=== PATIENT | male | born 1960 | race Caucasian/White ===

== ENCOUNTER 2018-03-15 19:02 | Emergency (ER) | payer OTHER ==
[~2018-03-15] VITALS: Ht 193 cm; Wt 99.8 kg
[~2018-03-15 19:02] MED LIST changes: -NAPR-915 PO
--- OUTSIDE RECORDS SUMMARY | 2018-03-15 19:06 | XMS REPORT | Continuity of Care Document ---
Author Author [facility] Address Unknown Phone Unavailable Allergies Active Description Code Type Severity Reaction Onset Reported/Identified Relationship to Patient Clinical Status Yes lisinopril Drug Allergy 05/18/2012 Yes lisinopril 5 mg tablet Drug Allergy N/A N/A 05/31/2012 Yes lisinopril 5 mg tablet Drug Allergy 05/31/2012 Yes Cozaar Drug Allergy N/A N/A 05/08/2013 Yes hydrochlorothiazide Drug Allergy N/A N/A 05/08/2013 Yes Norvasc Drug Allergy N/A N/A 05/08/2013 Medications There is no data. Problems Date Dx Coded Attending Type Code Diagnosis Diagnosed By 04/17/2012 JACK JUAN DO 327.23 OBSTRUCTIVE SLEEP APNEA (ADULT) (PEDIATRIC) 04/17/2012 JACK JUAN DO 401.1 HYPERTENSION, BENIGN ESSENTIAL 04/17/2012 JACK JUAN DO V70.0 ROUTINE GENERAL MEDICAL EXAMINATION AT A HEALTH CARE FACILITY 04/17/2012 327.23 OBSTRUCTIVE SLEEP APNEA (ADULT) (PEDIATRIC) 04/17/2012 401.1 HYPERTENSION, BENIGN ESSENTIAL 04/17/2012 V70.0 ROUTINE GENERAL MEDICAL EXAMINATION AT A HEALTH CARE FACILITY 04/17/2012 327.23 OBSTRUCTIVE SLEEP APNEA (ADULT) (PEDIATRIC) 04/17/2012 401.1 HYPERTENSION, BENIGN ESSENTIAL 04/17/2012 V70.0 ROUTINE GENERAL MEDICAL EXAMINATION AT A HEALTH CARE FACILITY 04/17/2012 327.23 OBSTRUCTIVE SLEEP APNEA (ADULT) (PEDIATRIC) 04/17/2012 401.1 HYPERTENSION, BENIGN ESSENTIAL 04/17/2012 V70.0 ROUTINE GENERAL MEDICAL EXAMINATION AT A HEALTH CARE FACILITY 04/17/2012 JACK JUAN DO 327.23 OBSTRUCTIVE SLEEP APNEA (ADULT) (PEDIATRIC) 04/17/2012 JACK JUAN DO 401.1 HYPERTENSION, BENIGN ESSENTIAL 04/17/2012 JACK JUAN DO V70.0 ROUTINE GENERAL MEDICAL EXAMINATION AT A HEALTH CARE FACILITY 04/17/2012 SAMI JUAN DOA K 327.23 OBSTRUCTIVE SLEEP APNEA (ADULT) (PEDIATRIC) 04/17/2012 JUAN DO, JACK K 401.1 HYPERTENSION, BENIGN ESSENTIAL 04/17/2012 JUAN DO, JACK K V70.0 ROUTINE GENERAL MEDICAL EXAMINATION AT A HEALTH CARE FACILITY 04/17/2012 JUAN DO JACK K 327.23 OBSTRUCTIVE SLEEP APNEA (ADULT) (PEDIATRIC) 04/17/2012 JUAN DO JACK K 401.1 HYPERTENSION, BENIGN ESSENTIAL 04/17/2012 JUAN DO, JACK K V70.0 ROUTINE GENERAL MEDICAL EXAMINATION AT A HEALTH CARE FACILITY 04/17/2012 JUAN DO, JACK K 327.23 OBSTRUCTIVE SLEEP APNEA (ADULT) (PEDIATRIC) 04/17/2012 JUAN DO, JACK K 401.1 HYPERTENSION, BENIGN ESSENTIAL 04/17/2012 JUAN DO, JACK K V70.0 ROUTINE GENERAL MEDICAL EXAMINATION AT A HEALTH CARE FACILITY 05/18/2012 JUAN DO JACK K 250.00 DIABETES MELLITUS TYPE 2 05/18/2012 JUAN DO JACK K 701.9 UNSPECIFIED HYPERTROPHIC AND ATROPHIC CONDITIONS OF SKIN 05/18/2012 250.00 DIABETES MELLITUS TYPE 2 05/18/2012 701.9 UNSPECIFIED HYPERTROPHIC AND ATROPHIC CONDITIONS OF SKIN 05/18/2012 250.00 DIABETES MELLITUS TYPE 2 05/18/2012 701.9 UNSPECIFIED HYPERTROPHIC AND ATROPHIC CONDITIONS OF SKIN 05/18/2012 250.00 DIABETES MELLITUS TYPE 2 05/18/2012 701.9 UNSPECIFIED HYPERTROPHIC AND ATROPHIC CONDITIONS OF SKIN 05/18/2012 JUAN DO, JACK K 250.00 DIABETES MELLITUS TYPE 2 05/18/2012 JUAN DO, JACK K 701.9 UNSPECIFIED HYPERTROPHIC AND ATROPHIC CONDITIONS OF SKIN 05/18/2012 JUAN DO, JACK K 250.00 DIABETES MELLITUS TYPE 2 05/18/2012 JUAN DO, JACK K 701.9 UNSPECIFIED HYPERTROPHIC AND ATROPHIC CONDITIONS OF SKIN 05/18/2012 JUAN DO, JACK K 250.00 DIABETES MELLITUS TYPE 2 05/18/2012 JUAN DO, JACK K 701.9 UNSPECIFIED HYPERTROPHIC AND ATROPHIC CONDITIONS OF SKIN 05/18/2012 JUAN DO, JACK K 250.00 DIABETES MELLITUS TYPE 2 05/18/2012 JUAN DO, JACK K 701.9 UNSPECIFIED HYPERTROPHIC AND ATROPHIC CONDITIONS OF SKIN 06/20/2012 JUAN DO JACK K 728.71 PLANTAR FASCIAL FIBROMATOSIS 06/20/2012 728.71 PLANTAR FASCIAL FIBROMATOSIS 06/20/2012 728.71 PLANTAR FASCIAL FIBROMATOSIS 06/20/2012 728.71 PLANTAR FASCIAL FIBROMATOSIS 06/20/2012 JACK JUAN DO 728.71 PLANTAR FASCIAL FIBROMATOSIS 06/20/2012 JACK JUAN DO 728.71 PLANTAR FASCIAL FIBROMATOSIS 06/20/2012 JACK JUAN DO 728.71 PLANTAR FASCIAL FIBROMATOSIS 06/20/2012 JACK JUAN DO 728.71 PLANTAR FASCIAL FIBROMATOSIS 08/11/2012 JACK JUAN DO 302.72 PSYCHOSEXUAL DYSFUNCTION WITH INHIBITED SEXUAL EXCITEMENT 08/11/2012 302.72 PSYCHOSEXUAL DYSFUNCTION WITH INHIBITED SEXUAL EXCITEMENT 08/11/2012 302.72 PSYCHOSEXUAL DYSFUNCTION WITH INHIBITED SEXUAL EXCITEMENT 08/11/2012 302.72 PSYCHOSEXUAL DYSFUNCTION WITH INHIBITED SEXUAL EXCITEMENT 08/11/2012 JACK JUAN DO 302.72 PSYCHOSEXUAL DYSFUNCTION WITH INHIBITED SEXUAL EXCITEMENT 08/11/2012 JACK JUAN DO 302.72 PSYCHOSEXUAL DYSFUNCTION WITH INHIBITED SEXUAL EXCITEMENT 08/11/2012 JACK JUAN DO 302.72 PSYCHOSEXUAL DYSFUNCTION WITH INHIBITED SEXUAL EXCITEMENT 01/16/2013 682.9 CELLULITIS AND ABSCESS OF UNSPECIFIED SITES 01/16/2013 682.9 CELLULITIS AND ABSCESS OF UNSPECIFIED SITES 01/16/2013 682.9 CELLULITIS AND ABSCESS OF UNSPECIFIED SITES 01/16/2013 JACK JUAN DO 682.9 CELLULITIS AND ABSCESS OF UNSPECIFIED SITES 01/16/2013 JACK JUAN DO 682.9 CELLULITIS AND ABSCESS OF UNSPECIFIED SITES 01/16/2013 JACK JUAN DO 682.9 CELLULITIS AND ABSCESS OF UNSPECIFIED SITES 01/22/2013 V81.1 HYPERTENSION SCREENING 01/22/2013 JACK JUAN DO V81.1 HYPERTENSION SCREENING 01/22/2013 JACK JUAN DO V81.1 HYPERTENSION SCREENING 01/22/2013 JACK JUAN DO V81.1 HYPERTENSION SCREENING 01/25/2013 729.82 CRAMP OF LIMB 01/25/2013 JACK JUAN DO 729.82 CRAMP OF LIMB 01/25/2013 JACK JUAN DO 729.82 CRAMP OF LIMB 01/25/2013 JACK JUAN DO 729.82 CRAMP OF LIMB 05/08/2013 JACK JUAN DO [place] 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 05/08/2013 JACK JUAN DO [place] V15.81 PERSONAL HISTORY OF NONCOMPLIANCE WITH MEDICAL TREATMENT PRESENTING HAZARDS TO HEALTH 05/08/2013 JACK JUAN DO [place] 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 Encounters ACCT No. Visit Date/Time Discharge Status Pt. Type Provider Facility Loc./Unit Complaint [id number] 08/23/2013 13:20:00 08/23/2013 23:59:59 CLS Outpatient DRAKE MCKEON JACK K [id number] 05/25/2013 13:22:00 05/25/2013 23:59:59 CLS Outpatient DRAKE MCKEON JACK [place] [id number] 05/08/2013 10:11:00 05/08/2013 23:59:59 CLS Outpatient DRAKE MCKEON JACK K [id number] 08/11/2012 11:18:00 08/11/2012 23:59:59 CLS Outpatient [place] K [id number] 05/18/2012 11:34:00 05/18/2012 23:59:59 CLS Outpatient JUAN DO JACK K [id number] 01/25/2013 08:57:00 Document Registration [id number] 01/18/2013 08:20:00 Document Registration [id number] 01/16/2013 18:03:00 Document Registration [id number] 03/21/2014 10:12:00 03/21/2014 11:29:00 DIS Emergency
--- OUTSIDE RECORDS SUMMARY | 2018-03-15 19:06 | XMS REPORT ---
Author RICCO Reyes [employer] Address Unknown Phone Unavailable Care Team Providers Care Youth Care Professional Name Role Phone RICCO LORENZO CP Unavailable Allergies, Adverse Reactions, Alerts Substance Reaction Event Type Norvasc Pedal Edema Drug Allergy Hydrochlorothiazide Leg cramps (doesn't want to be on K as well) Drug Allergy Cozaar ED Drug Allergy Lisinopril 5 Mg Tablet Cough Non Drug Allergy Problems Problem Type Condition Code Onset Dates Condition Status Problem Unspecified hypertrophic and atrophic condition of skin 701.9 Active Problem Cellulitis and abscess of unspecified site 682.9 Active Problem Diabetes mellitus without mention of complication, type II or unspecified type, not stated as uncontrolled 250.00 Active Problem 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 Active Problem Personal history of noncompliance with medical treatment, presenting hazards to health V15.81 Active Problem Encounter for dental examination Z01.20 Active Problem Routine general medical examination at health care facility V70.0 Active Problem Essential hypertension, benign 401.1 Active Problem Psychosexual dysfunction with inhibited sexual excitement 302.72 Active Problem Obstructive sleep apnea (adult) (pediatric) 327.23 Active Problem Cramp of limb 729.82 Active Problem Screening for hypertension V81.1 Active Problem Need for prophylactic vaccination and inoculation, Influenza V04.81 Active Assessment Encounter for dental examination Z01.20 Active Problem Plantar fascial fibromatosis 728.71 Active Medications No Known Medications Procedures Procedure Coding System Code Date Billing Notes on claim CPT-4 EC109 Jun 19, 2015 Vital Signs Date/Time: Jun 19, 2015 Blood Pressure Diastolic 98 mmHg Blood Pressure Systolic 150 mmHg Cardiac Monitoring Heart Rate 101 bpm Results No Known Results Summary Purpose eClinicalWorks Submission
--- NOTE | 2018-03-15 19:36 | ED Abdominal Pain ---
General Stated Complaint: HERNIA Source of Information: Patient Exam Limitations: No Limitations History of Present Illness Date Seen by Provider: Mar 15, 2018 Time Seen by Provider: 19:12 Initial Comments PT ARRIVES VIA POV FROM HOME STATES HE HURT HIMSELF AT WORK TODAY AND THINKS HE HAS A HERNIA STATES HE WORKS AT [employer], AND AROUND 0730 THIS AM, HE WAS PUSHING A BIG BOTTLE OF HELIUM ( STATES IT IS APPROXIMATELY 5" TALL AND WEIGHS SEVERAL HUNDRED LBS. ), AND HE SLIPPED AND FELL ONTO / AGAINST THE BOTTLE C/O PAIN AND SWELLING TO RIGHT PUBIC AREA--NOTICED SOME TIME AFTER HE SLIPPED AND FELL. SWELLING NOTED WHEN HE RAISES HIS ARMS OVER HIS HEAD, STATES THE AREA WAS BULGING OUT SIGNIFICANTLY THIS MORNING AFTER IT HAPPENED. IS NOT BULGING OUT NOW. NO PAIN NOW WAS SEEN AT [facility] TODAY AND HAD OUTPATIENT ULTRASOUND, WHICH WAS NORMAL AND DID NOT SHOW ANY EVIDENCE OF A HERNIA. NO NAUSEA/VOMITING/DIARRHEA/CONSTIPATION DOES HAVE SOME URINARY URGENCY, BUT NO PAIN ON URINATION AND NO HEMATURIA/ CHANGE IN COLOR OF URINE. NO FEVER HAS NOT TAKEN ANYTHING FOR PAIN NO HISTORY OF SIMILAR PCP: DR. HOOD SURGEON: DR. WOLFF Allergies and Home Medications Allergies Coded Allergies: liraglutide (Verified Allergy, Mild, RASH, 03/15/18) Home Medications Naproxen 500 Mg Tablet, 500 MG PO BID Prescribed by: NIKOLE MARQUEZ on 03/15/182111 Patient Home Medication List Home Medication List Reviewed: Yes Review of Systems Constitutional: weight loss (BARIATRIC SURGERY IN 2017--HAS LOST 90 LBS) Respiratory: No Symptoms Reported Cardiovascular: No Symptoms Reported Gastrointestinal: See HPI, Abdominal Pain; Denies Constipated, Denies Diarrhea , Denies Nausea, Denies Poor Fluid Intake, Denies Vomiting Genitourinary: See HPI; Denies Burning, Denies Discharge, Denies Frequency, Denies Flank Pain, Denies Hematuria, Denies Pain; Urgency Musculoskeletal: see HPI; No back pain, No neck pain Skin: no symptoms reported Psychiatric/Neurological: No Symptoms Reported Endocrine: No Symptoms Reported Hematologic/Lymphatic: No Symptoms Reported Past Kqcflnr-Szzizk-Cctdoe Hx Patient Social History Alcohol Use: Denies Use Recreational Drug Use: No Smoking Status: Never a Smoker Past Medical History Surgeries: Yes (GASTRIC SLEEVE 2017 BY NORA PANTOJA) Abdominal, Appendectomy, Gallbladder Respiratory: No Cardiac: No Neurological: No Reproductive Disorders: No Genitourinary: No Gastrointestinal: Yes Gastroesophageal Reflux Musculoskeletal: No Endocrine: Yes (OBESITY--S/P GASTRIC SLEEVESURGERY) Diabetes, Non-Insulin dep Cancer: No Psychosocial: No Integumentary: No Blood Disorders: No Physical Exam Vital Signs Vital Signs - First Documented 03/15/18 19:09 Temp 97.8 Pulse 82 Resp 16 B/P (MAP) 175/117 (136) Pulse Ox 100 Capillary Refill : Height/Weight/BMI Height: 6'4" Weight: 266lbs. oz. 120.737310gt; BMI Method: General Appearance: no apparent distress, other (WALKS UPRIGHT AND MOVES WITHOUT DIFFICULTY. CALM. DOES NOT APPEAR TO BE IN ANY DISCOMFORT) Respiratory: normal breath sounds, no respiratory distress, no accessory muscle use Cardiovascular: normal peripheral pulses, regular rate, rhythm, no edema, no murmur Gastrointestinal: normal bowel sounds, non tender, soft, no organomegaly, no pulsatile mass, hernia (RIGHT INGUINAL AREA) Extremities: normal inspection, normal capillary refill Back: normal inspection, no CVA tenderness Neurologic/Psychiatric: palliative care coordinator II-XII nml as tested, no motor/sensory deficits, alert, normal mood/affect, oriented x 3 Skin: normal color, warm/dry, tattoos/piercings (TATTOO RIGHT LOWER ABDOMEN), other (NO EXTERNAL EVIDENCE OF TRAUMA NOTED ANYWHERE) Progress/Results/Core Measures Results/Orders Lab Results Laboratory Tests Test 03/15/18 19:27 Range/Units White Blood Count 6.2 4.3-11.0 10^3/uL Red Blood Count 5.32 4.35-5.85 10^6/uL Hemoglobin 15.8 13.3-17.7 G/DL Hematocrit 45 40-54 % Mean Corpuscular Volume 85 80-99 FL Mean Corpuscular Hemoglobin 30 25-34 PG Mean Corpuscular Hemoglobin Concent 35 32-36 G/DL Red Cell Distribution Width 12.6 10.0-14.5 % Platelet Count 230 130-400 10^3/uL Mean Platelet Volume 9.5 7.4-10.4 FL Neutrophils (%) (Auto) 58 42-75 % Lymphocytes (%) (Auto) 32 12-44 % Monocytes (%) (Auto) 8 0-12 % Eosinophils (%) (Auto) 2 0-10 % Basophils (%) (Auto) 1 0-10 % Neutrophils # (Auto) 3.6 1.8-7.8 X 10^3 Lymphocytes # (Auto) 2.0 1.0-4.0 X 10^3 Monocytes # (Auto) 0.5 0.0-1.0 X 10^3 Eosinophils # (Auto) 0.1 0.0-0.3 10^3/uL Basophils # (Auto) 0.0 0.0-0.1 10^3/uL Urine Color YELLOW Urine Clarity CLEAR Urine pH 5 5-9 Urine Specific Falls 1.025 H 1.016-1.022 Urine Protein NEGATIVE NEGATIVE Urine Glucose (UA) NEGATIVE NEGATIVE Urine Ketones NEGATIVE NEGATIVE Urine Nitrite NEGATIVE NEGATIVE Urine Bilirubin NEGATIVE NEGATIVE Urine Urobilinogen 1 NORMAL MG/DL Urine Leukocyte Esterase 1+ H NEGATIVE Urine RBC (Auto) NEGATIVE NEGATIVE Urine RBC NONE /HPF Urine WBC 0-2 /HPF Urine Squamous Epithelial Cells 0-2 /HPF Urine Crystals PRESENT H /LPF Urine Calcium Oxalate Crystals MODERATE H /LPF Urine Bacteria NONE /HPF Urine Casts NONE /LPF Urine Mucus SMALL H /LPF Urine Culture Indicated NO Sodium Level 143 135-145 MMOL/L Potassium Level 3.6 3.6-5.0 MMOL/L Chloride Level 108 H 98-107 MMOL/L Carbon Dioxide Level 26 21-32 MMOL/L Anion Gap 9 5-14 MMOL/L Blood Urea Nitrogen 16 7-18 MG/DL Creatinine 0.81 0.60-1.30 MG/DL Estimat Glomerular Filtration Rate > 60 BUN/Creatinine Ratio 20 Glucose Level 122 H 70-105 MG/DL Calcium Level 9.5 8.5-10.1 MG/DL Corrected Calcium 8.5-10.1 MG/DL Total Bilirubin 1.2 H 0.1-1.0 MG/DL Aspartate Amino Transf (AST/SGOT) 22 5-34 U/L Alanine Aminotransferase (ALT/SGPT) 24 0-55 U/L Alkaline Phosphatase 89 40-136 U/L Total Protein 8.1 6.4-8.2 GM/DL Albumin 4.6 H 3.2-4.5 GM/DL Amylase Level 57 25-125 U/L Lipase 43 8-78 U/L My Orders Orders - NIKOLE MARQUEZ DO Saline Lock/Iv-Start (03/15/18 19:11) Amylase (03/15/18 19:11) Cbc With Automated Diff (03/15/18 19:11) Comprehensive Metabolic Panel (03/15/18 19:11) Lipase (03/15/18 19:11) Ua Culture If Indicated (03/15/18 19:11) Acute Abd Series (03/15/18 19:11) Ct Abd/Pelvis Wo(Kidney Stone) (03/15/18 20:11) Vital Signs/I&O 03/15/18 03/15/18 19:09 21:23 Temp 97.8 Pulse 82 73 Resp 16 16 B/P (MAP) 175/117 (136) 150/112 Pulse Ox 100 98 Progress Progress Note : Progress Note NO PAIN DURING ER STAY Diagnostic Imaging Comments CT ABDOMEN/PELVIS--FAT CONTAINING HERNIA IN RIGHT GROIN, WITHOUT EVIDENCE OF INCARCERATION OR OBSTRUCTION, OTHER AN NO ACUTE PROCESS--PER RADIOLOGIST REPORT @ 2100 Reviewed: Reviewed by Me Departure Impression Primary Impression: RIGHT LOWER ABDOMEN/PUBIC AREA CONTUSION Additional Impression: Right inguinal hernia Disposition: HOME, SELF-CARE Condition: Stable Departure-Patient Inst. Referrals: SHIRIN BRICENO MD, LISA A MD (PCP/Family) Primary Care Physician Patient Instructions: Abdominal Hernia (DC), Contusion (DC), Groin Hernia (DC) Add. Discharge Instructions: NO LIFTING OVER 5 LBS UNTIL YOU ARE SEEN AND RELEASED BY FOLLOW UP WITH DR. BRICENO OR SURGEON OF CHOICE NEXT WEEK FOR FURTHER CARE RETURN TO ER IF WORSE Scripts Naproxen (Naproxen) 500 Mg Tablet 500 MG PO BID, #20 TAB Prov: NIKOLE MARQUEZ DO 03/15/18 NIKOLE MARQUEZ DO Mar 15, 2018 19:36
[2018-03-15 19:37] LABS: BASOPHILS % (AUTO) 1 % (0-10); EOSINOPHILS # (AUTO) 0.1 10^3/uL (0.0-0.3); EOSINOPHILS % (AUTO) 2 % (0-10); HEMATOCRIT 45 % (40-54); HEMOGLOBIN 15.8 G/DL (13.3-17.7); LYMPHOCYTES % (AUTO) 32 % (12-44); MEAN CORPUSCULAR HEMOGLOBIN 30 PG (25-34); MEAN CORPUSCULAR HGB CONC 35 G/DL (32-36); MEAN CORPUSCULAR VOLUME 85 FL (80-99); MEAN PLATELET VOLUME 9.5 FL (7.4-10.4); MONOCYTES # (AUTO) 0.5 X 10^3 (0.0-1.0); MONOCYTES % (AUTO) 8 % (0-12); NEUTROPHILS # (AUTO) 3.6 X 10^3 (1.8-7.8); NEUTROPHILS % (AUTO) 58 % (42-75); PLATELET COUNT 230 10^3/uL (130-400); RED BLOOD COUNT 5.32 10^6/uL (4.35-5.85); RED CELL DISTRIBUTION WIDTH 12.6 % (10.0-14.5); WHITE BLOOD COUNT 6.2 10^3/uL (4.3-11.0)
[2018-03-15 19:38] LABS: BILIRUBIN,URINE NEGATIVE (NEGATIVE); CLARITY,URINE CLEAR; COLOR,URINE YELLOW; GLUCOSE, URINE (UA) NEGATIVE (NEGATIVE); KETONES,URINE NEGATIVE (NEGATIVE); LEUKOCYTE ESTERASE ,URINE 1+ (NEGATIVE); NITRITE,URINE NEGATIVE (NEGATIVE); PH,URINE 5 (5-9); PROTEIN,URINE NEGATIVE (NEGATIVE); UROBILINOGEN,URINE 1 MG/DL (NORMAL)
[2018-03-15 19:46] LABS: CALCIUM OXALATE CRYSTALS,UR MODERATE /LPF; SQUAMOUS EPITHELIAL CELL,UR 0-2 /HPF; WBC,URINE 0-2 /HPF
[2018-03-15 20:01] LABS: ALANINE AMINOTRANSFERASE 24 U/L (0-55); ALBUMIN 4.6 GM/DL (3.2-4.5); ALKALINE PHOSPHATASE 89 U/L (40-136); AMYLASE 57 U/L (25-125); BILIRUBIN,TOTAL 1.2 MG/DL (0.1-1.0); BUN/CREATININE RATIO 20; CALCIUM 9.5 MG/DL (8.5-10.1); CARBON DIOXIDE 26 MMOL/L (21-32); CHLORIDE 108 MMOL/L (98-107); CREATININE SERUM 0.81 MG/DL (0.60-1.30); GFR ESTIMATED > 60; GLUCOSE 122 MG/DL (70-105); LIPASE 43 U/L (8-78); POTASSIUM 3.6 MMOL/L (3.6-5.0); SODIUM 143 MMOL/L (135-145); TOTAL PROTEIN 8.1 GM/DL (6.4-8.2)
--- NOTE | 2018-03-15 20:57 | Diagnostic Imaging Report ---
PROCEDURE: CT urinary tract, rule out kidney stone. TECHNIQUE: Multiple contiguous axial images were obtained through the abdomen and pelvis without the use of intravenous contrast. INDICATION: Right groin pain There are no prior studies available for comparison. Reportedly, there is clinical concern regarding a mass in the right groin. On this exam, however, there is no discrete mass identified. There is a fat containing inguinal hernia on the right but there is no incarceration or obstruction of bowel by the hernia. There is no pelvic mass or free fluid collection identified. The appendix was not well-visualized but there are no indirect signs of acute appendicitis. The prostate gland is mildly enlarged. The urinary bladder is grossly unremarkable. The kidneys are unremarkable for nephrolithiasis or for a renal mass. The kidneys do not appear to be obstructed. There is a well-circumscribed 2.4 CM area of low density along the posterior aspect of the left kidney. I suspect that this is a cyst. Ultrasound would be recommended to confirm this, however. The liver, spleen, pancreas, adrenals, aorta, and inferior vena cava show no sign of an acute abnormality. The gallbladder is surgically absent. There are also surgical sutures about the stomach. The lung bases are clear. The bone windows show no evidence for a fracture or for a destructive lesion. There is fairly severe degenerative disc and bony disease at L3-4, L4-5, and L5-S1. IMPRESSION: 1. There is a fat-containing inguinal hernia on the right but there is no evidence for obstruction or incarceration of bowel by the hernia. There is no mass in the right groin identified either. 2. There is no acute abnormality of the abdomen or pelvis. 3. The rounded area of low density along the posterior aspect of the left kidney is most likely a cyst. Ultrasound would be recommended to confirm this. 4. There are postsurgical changes consistent with a prior cholecystectomy and gastric surgery. Dictated by: Dictated on workstation # [id number]
--- NOTE | 2018-03-15 21:01 | Diagnostic Imaging Report ---
EXAMINATION: Acute abdomen series at 08:34 p.m. INDICATION: Abdominal pain. FINDINGS: The accompanying erect PA chest shows the heart size to be within normal limits and stable when compared to 03/21/2014. The lungs are clear. There is no sign of pneumoperitoneum. Supine and erect views of the abdomen were obtained. There is gas in both the large and small bowel in a nonspecific fashion. There is no evidence for a bowel obstruction. There is no mass or organomegaly appreciated. Surgical clips are evident in the right upper quadrant consistent with prior cholecystectomy. Surgical sutures are also seen overlying the stomach. The osseous structures are intact. IMPRESSION: The bowel gas pattern is nonspecific. There is no acute abnormality identified. Dictated by: Dictated on workstation # [id number]
[2018-03-15] MEDS ORDERED: NAPR-915 PO (21:12)
[2018-03-15 21:23] VITALS: BP 150/112
== END 2018-03-15 21:23 | disposition home or self-care (01) ==
LOC: ER 19:02 → EDUNIT# 19:02 → ER 21:23
DX: S30.1XXA Contusion of abdominal wall, initial encounter (principal); K40.90 Unilateral inguinal hernia, without obstruction or gangrene, not specified as recurrent; K21.9 Gastro-esophageal reflux disease without esophagitis; E66.9 Obesity, unspecified; E11.9 Type 2 diabetes mellitus without complications; Z88.8 Allergy status to other drugs, medicaments and biological substances; Z98.84 Bariatric surgery status; Z90.89 Acquired absence of other organs; W01.0XXA Fall on same level from slipping, tripping and stumbling without subsequent striking against object, initial encounter
CPT/HCPCS: 36415; 74022; 74176; 80053; 81000; 82150; 83690; 85025

== ENCOUNTER → 2018-03-15 | Outpatient (CLI) | payer OTHER ==
[~2018-03-15] MED LIST: COZAAR PO; LASIX PO; METF-380 PO; NAPR-915 PO; [UNRECOGNIZED DRUG - OTHER]
--- NOTE | 2018-03-15 10:38 | Diagnostic Imaging Report ---
PROCEDURE: US Abdomen, limited. TECHNIQUE: Multiple realtime grayscale images were obtained over the abdomen in various projections. INDICATION: Fall with fullness in the right inguinal and suprapubic region. Sonographic interrogation of the area of fullness in right inguinal region was performed. No sonographic abnormality is seen. No definite defect or hernia is seen. No fluid collection is identified. IMPRESSION: No abnormality identified. Dictated by: Dictated on workstation # [id number]
== END ==
LOC: RAD 10:08
PROVIDERS: ATTEND Nurse Practitioner Family
DX: K40.90 Unilateral inguinal hernia, without obstruction or gangrene, not specified as recurrent (principal); W19.XXXA Unspecified fall, initial encounter
CPT/HCPCS: 76705

== ENCOUNTER → 2019-05-17 | Outpatient (CLI) | payer OTHER ==
[~2019-05-17] MED LIST changes: +NAPR-915 PO
--- NOTE | 2019-05-17 10:35 | Diagnostic Imaging Report ---
PROCEDURE: MRI right joint lower extremity without contrast. TECHNIQUE: Multiplanar, multisequence non contrast-enhanced MRI of the right lower extremity was accomplished. INDICATION: Fall and right knee pain. COMPARISON: No prior studies are available for comparison. FINDINGS: The marrow signal intensity is unremarkable. No bone bruise or geographic marrow lesion is detected. No significant joint effusion is seen. The ACL and PCL are intact. The medial and lateral collateral ligament complexes are intact. The medial and lateral menisci are intact. No tear or displaced meniscal fragment is seen. The extensor mechanism is unremarkable. There is some mild edema and subcutaneous tissues of the anterior knee. Articular cartilage appears to be intact. No definite osteochondral defect is seen. IMPRESSION: Essentially unremarkable MRI of the right knee. No ligamentous or meniscal tear is detected. Dictated by: Dictated on workstation # [id number]
== END ==
LOC: RAD 09:29
PROVIDERS: ATTEND Orthopaedic Surgery
DX: S89.91XD Unspecified injury of right lower leg, subsequent encounter (principal); M25.561 Pain in right knee; W19.XXXA Unspecified fall, initial encounter
CPT/HCPCS: 73721

== ENCOUNTER → 2019-07-13 | Outpatient (CLI) | payer OTHER ==
--- NOTE | 2019-07-13 17:41 | Diagnostic Imaging Report ---
INDICATION: Swelling above the right testicle. Bulge feels different than a hernia. TECHNIQUE: Real-time grayscale sonographic imaging and color vascular evaluation of the scrotum. CORRELATION STUDY: CT abdomen and pelvis from 03/15/2018. FINDINGS: RIGHT TESTICLE: 5.0 x 2.5 x 3.6 cm. LEFT TESTICLE: 4.8 x 2.3 x 3.3 cm. The testicles are in normal location and demonstrate homogeneous echotexture. There is vascular flow to the testicles. There does appear to be slight increased vascularity in the epididymides, right greater than left. This could be reflective of underlying low-grade epididymitis. Small hydroceles are present. There is heterogeneous elongated echotexture within the superior aspect of the right scrotum. No definitive bowel signature with features suspect for probable herniated fat. IMPRESSION: 1. Low-grade epididymitis not excluded. 2. There is questionable elongated area within superior to the right scrotum. While nonspecific could be reflective of potential herniated fat. Definitive defect however is not visualized. If further imaging evaluation is desired, follow-up with CT imaging with pelvis may be of additional diagnostic utility. Dictated by: Dictated on workstation # [id number]
== END ==
LOC: RAD 15:48
PROVIDERS: ATTEND Surgery
DX: N50.819 Testicular pain, unspecified (principal); N50.89 Other specified disorders of the male genital organs
CPT/HCPCS: 76870

== ENCOUNTER → 2019-08-28 | Outpatient (CLI) | payer OTHER ==
--- NOTE | 2019-08-28 09:40 | Diagnostic Imaging Report ---
EXAMINATION: Magnetic resonance imaging of the left shoulder without contrast. DATE: August 28, 2019. COMPARISON: None. HISTORY: 59-year-old male, fall. Left shoulder injury. Left shoulder pain. TECHNIQUE: Magnetic Resonance Imaging sequences were performed of the shoulder without contrast. FINDINGS: ROTATOR CUFF, LIGAMENTS, TENDONS, AND MUSCLES: The supraspinatus, infraspinatus, teres minor, and subscapularis tendons and muscles are intact. There is normal rotator cuff muscle bulk and signal. LONG HEAD OF BICEPS: The biceps labral attachment and long head of the biceps tendon is intact. The long head of the biceps tendon is normally positioned within the bicipital groove. GLENOHUMERAL JOINT: The humeral head is well positioned relative to the glenoid. The labrum is grossly intact. There is no identified paralabral cyst. The articular cartilage is grossly intact. There is no joint effusion. ACROMIOCLAVICULAR JOINT: The acromioclavicular joint is normally aligned. The coracoclavicular and coracoacromial ligaments are intact. There are no degenerative changes of the acromioclavicular joint. BONE: The bones all have normal configuration. The bone marrow signal is within normal limits. Specifically, negative for fracture, osteomyelitis, osteonecrosis, or marrow replacing process. BURSAE AND SOFT TISSUES: The bursae and soft tissue surrounding the shoulder are unremarkable. IMPRESSION: 1. Unremarkable MRI of the left shoulder. Dictated by: Dictated on workstation # [id number]
== END ==
LOC: RAD 08:26
PROVIDERS: ATTEND Physician Assistant
DX: S49.92XD Unspecified injury of left shoulder and upper arm, subsequent encounter (principal)
CPT/HCPCS: 73221

== ENCOUNTER → 2021-02-25 | Outpatient (CLI) | payer BC ==
[2021-02-25 11:56] LABS: BASOPHILS % (AUTO) 0 % (0-10); EOSINOPHILS # (AUTO) 0.1 10^3/uL (0.0-0.3); EOSINOPHILS % (AUTO) 1 % (0-10); HEMATOCRIT 42 % (40-54); HEMOGLOBIN 13.9 g/dL (13.3-17.7); LYMPHOCYTES # (AUTO) 1.4 10^3/uL (1.0-4.0); LYMPHOCYTES % (AUTO) 21 % (12-44); MEAN CORPUSCULAR HEMOGLOBIN 30 pg (25-34); MEAN CORPUSCULAR HGB CONC 33 g/dL (32-36); MEAN CORPUSCULAR VOLUME 91 fL (80-99); MONOCYTES # (AUTO) 0.5 10^3/uL (0.0-1.0); MONOCYTES % (AUTO) 7 % (0-12); NEUTROPHILS # (AUTO) 4.7 10^3/uL (1.8-7.8); NEUTROPHILS % (AUTO) 69 % (42-75); PLATELET COUNT 181 10^3/uL (130-400); WHITE BLOOD COUNT 6.8 10^3/uL (4.3-11.0)
== END ==
LOC: LAB 11:24
PROVIDERS: ATTEND Surgery
DX: E11.621 Type 2 diabetes mellitus with foot ulcer (principal); E11.42 Type 2 diabetes mellitus with diabetic polyneuropathy; L97.522 Non-pressure chronic ulcer of other part of left foot with fat layer exposed; I70.245 Atherosclerosis of native arteries of left leg with ulceration of other part of foot
CPT/HCPCS: 36415; 85025

== ENCOUNTER → 2021-02-25 | Outpatient (CLI) | payer BC, OTHER | LOC: WOUNDCARE 09:13 | PROVIDERS: ATTEND Surgery | DX: E11.621 Type 2 diabetes mellitus with foot ulcer (principal); E11.42 Type 2 diabetes mellitus with diabetic polyneuropathy; L97.522 Non-pressure chronic ulcer of other part of left foot with fat layer exposed; I70.245 Atherosclerosis of native arteries of left leg with ulceration of other part of foot | CPT/HCPCS: 11042; A6197; G0463 ==

== ENCOUNTER → 2021-03-03 | Outpatient (CLI) | payer BC, OTHER | LOC: WOUNDCARE 08:24 | PROVIDERS: ATTEND Surgery | DX: E11.621 Type 2 diabetes mellitus with foot ulcer (principal); E11.42 Type 2 diabetes mellitus with diabetic polyneuropathy; L97.521 Non-pressure chronic ulcer of other part of left foot limited to breakdown of skin; E11.52 Type 2 diabetes mellitus with diabetic peripheral angiopathy with gangrene | CPT/HCPCS: 97597; G0463 ==

== ENCOUNTER → 2021-03-10 | Outpatient (CLI) | payer OTHER | LOC: WOUNDCARE 09:40 | PROVIDERS: ATTEND Surgery | DX: E11.621 Type 2 diabetes mellitus with foot ulcer (principal); E11.42 Type 2 diabetes mellitus with diabetic polyneuropathy; L97.512 Non-pressure chronic ulcer of other part of right foot with fat layer exposed; E11.52 Type 2 diabetes mellitus with diabetic peripheral angiopathy with gangrene | CPT/HCPCS: 11042; G0463 ==

== ENCOUNTER → 2021-03-17 | Outpatient (CLI) | payer OTHER | LOC: WOUNDCARE 09:55 | PROVIDERS: ATTEND Surgery | DX: E11.621 Type 2 diabetes mellitus with foot ulcer (principal); I96 Gangrene, not elsewhere classified; E11.42 Type 2 diabetes mellitus with diabetic polyneuropathy; L97.512 Non-pressure chronic ulcer of other part of right foot with fat layer exposed | CPT/HCPCS: 11042; G0463 ==

== ENCOUNTER → 2021-03-24 | Outpatient (CLI) | payer OTHER | LOC: WOUNDCARE 10:31 | PROVIDERS: ATTEND Surgery | DX: E11.621 Type 2 diabetes mellitus with foot ulcer (principal); I96 Gangrene, not elsewhere classified; E11.42 Type 2 diabetes mellitus with diabetic polyneuropathy; L97.512 Non-pressure chronic ulcer of other part of right foot with fat layer exposed | CPT/HCPCS: 11042; A6207; G0463 ==

== ENCOUNTER → 2021-03-26 | Outpatient (CLI) | payer OTHER | LOC: WOUNDCARE 09:30 | PROVIDERS: ATTEND Surgery | DX: E11.621 Type 2 diabetes mellitus with foot ulcer (principal); I96 Gangrene, not elsewhere classified; E11.42 Type 2 diabetes mellitus with diabetic polyneuropathy; L97.512 Non-pressure chronic ulcer of other part of right foot with fat layer exposed | CPT/HCPCS: 29445; G0463 ==

== ENCOUNTER → 2021-03-30 | Outpatient (CLI) | payer OTHER | LOC: WOUNDCARE 09:59 | PROVIDERS: ATTEND Surgery | DX: E11.621 Type 2 diabetes mellitus with foot ulcer (principal); E11.42 Type 2 diabetes mellitus with diabetic polyneuropathy; L97.512 Non-pressure chronic ulcer of other part of right foot with fat layer exposed; E11.52 Type 2 diabetes mellitus with diabetic peripheral angiopathy with gangrene | CPT/HCPCS: 11042; A6234; G0463 ==

== ENCOUNTER → 2021-04-07 | Outpatient (CLI) | payer OTHER | LOC: WOUNDCARE 10:28 | PROVIDERS: ATTEND Surgery | DX: E11.621 Type 2 diabetes mellitus with foot ulcer (principal); E11.42 Type 2 diabetes mellitus with diabetic polyneuropathy; L97.512 Non-pressure chronic ulcer of other part of right foot with fat layer exposed ==

== ENCOUNTER → 2021-04-21 | Outpatient (CLI) | payer OTHER | LOC: WOUNDCARE 09:57 | PROVIDERS: ATTEND Surgery | DX: E11.621 Type 2 diabetes mellitus with foot ulcer (principal); E11.42 Type 2 diabetes mellitus with diabetic polyneuropathy; L97.512 Non-pressure chronic ulcer of other part of right foot with fat layer exposed | CPT/HCPCS: 99212 ==

== ENCOUNTER → 2021-04-30 | Outpatient (CLI) | payer OTHER | LOC: WOUNDCARE 08:10 | PROVIDERS: ATTEND Surgery | DX: E11.621 Type 2 diabetes mellitus with foot ulcer (principal); E11.42 Type 2 diabetes mellitus with diabetic polyneuropathy; L97.512 Non-pressure chronic ulcer of other part of right foot with fat layer exposed; E11.52 Type 2 diabetes mellitus with diabetic peripheral angiopathy with gangrene | CPT/HCPCS: 11042; A6197; G0463 ==

== ENCOUNTER → 2021-04-30 | Outpatient (CLI) | payer OTHER ==
--- NOTE | 2021-04-30 10:32 | Diagnostic Imaging Report ---
INDICATION: Nonhealing ulcer. 3 views were obtained FINDINGS: The alignment is normal. There is no fracture or dislocation. Soft tissues are grossly unremarkable. There are no radiographic evidence of osteomyelitis.. IMPRESSION: No focal abnormality in the right foot. Dictated by: Dictated on workstation # [id number]
== END ==
LOC: RAD 08:53
PROVIDERS: ATTEND Surgery
DX: E11.621 Type 2 diabetes mellitus with foot ulcer (principal); L97.512 Non-pressure chronic ulcer of other part of right foot with fat layer exposed; E11.42 Type 2 diabetes mellitus with diabetic polyneuropathy
CPT/HCPCS: 73630

== ENCOUNTER → 2021-05-05 | Outpatient (CLI) | payer OTHER | LOC: LAB 10:22 | PROVIDERS: ATTEND Surgery | DX: E11.621 Type 2 diabetes mellitus with foot ulcer (principal) | CPT/HCPCS: 36415; 85652; 86141 ==

== ENCOUNTER → 2021-05-05 | Outpatient (CLI) | payer OTHER | LOC: WOUNDCARE 10:46 | PROVIDERS: ATTEND Surgery | DX: I89.0 Lymphedema, not elsewhere classified (principal); I96 Gangrene, not elsewhere classified; E11.621 Type 2 diabetes mellitus with foot ulcer; E11.42 Type 2 diabetes mellitus with diabetic polyneuropathy; L97.512 Non-pressure chronic ulcer of other part of right foot with fat layer exposed | CPT/HCPCS: 11042; A6207; G0463 ==

== ENCOUNTER → 2021-05-12 | Outpatient (CLI) | payer OTHER | LOC: WOUNDCARE 10:51 | PROVIDERS: ATTEND Surgery | DX: I89.0 Lymphedema, not elsewhere classified (principal); E11.621 Type 2 diabetes mellitus with foot ulcer; E11.42 Type 2 diabetes mellitus with diabetic polyneuropathy; E11.52 Type 2 diabetes mellitus with diabetic peripheral angiopathy with gangrene; L97.512 Non-pressure chronic ulcer of other part of right foot with fat layer exposed | CPT/HCPCS: 99212 ==

== ENCOUNTER → 2021-05-19 | Outpatient (CLI) | payer OTHER | LOC: WOUNDCARE 10:32 | PROVIDERS: ATTEND Family Medicine | DX: I89.0 Lymphedema, not elsewhere classified (principal); E11.621 Type 2 diabetes mellitus with foot ulcer; E11.52 Type 2 diabetes mellitus with diabetic peripheral angiopathy with gangrene; E11.42 Type 2 diabetes mellitus with diabetic polyneuropathy; L97.512 Non-pressure chronic ulcer of other part of right foot with fat layer exposed | CPT/HCPCS: 11042; A6197; G0463; L4386 ==

== ENCOUNTER → 2021-05-25 | Outpatient (CLI) | payer OTHER | LOC: WOUNDCARE 05-18 11:16 | PROVIDERS: ATTEND Family Medicine | DX: I89.0 Lymphedema, not elsewhere classified (principal); E11.621 Type 2 diabetes mellitus with foot ulcer; E11.42 Type 2 diabetes mellitus with diabetic polyneuropathy; L97.512 Non-pressure chronic ulcer of other part of right foot with fat layer exposed | CPT/HCPCS: 11042; G0463 ==

== ENCOUNTER → 2021-06-02 | Outpatient (CLI) | payer OTHER | LOC: WOUNDCARE 10:26 | PROVIDERS: ATTEND Family Medicine | DX: I89.0 Lymphedema, not elsewhere classified (principal); E11.621 Type 2 diabetes mellitus with foot ulcer; E11.42 Type 2 diabetes mellitus with diabetic polyneuropathy; L97.512 Non-pressure chronic ulcer of other part of right foot with fat layer exposed; L03.114 Cellulitis of left upper limb | CPT/HCPCS: 99212 ==